=== PATIENT | female | born 1990 | race Caucasian/White ===

== ENCOUNTER 2017-12-17 16:53 | Emergency (ER) | payer OTHER ==
[~2017-12-17] VITALS: Ht 157.5 cm; Wt 52.2 kg
[~2017-12-17 16:53] MED LIST: AMPH20TA3 PO; BUPR75TA3 PO; METO25TA6 PO
--- NOTE | 2017-12-17 16:53 | NUR ---
C/O EPIGASTRIC PAIN, NAUSEA AND VOMITING X 4 DAYS. NAD NOTED. PT AAO X4, AMB WITH STEADY GAIT. RR EVEN AND UNLABORED. PENDING MD HOFF.
[2017-12-17] MEDS ORDERED: ONDANSETRON 4 MG TAB.RAPDIS ONE (17:18)
[2017-12-17 17:23] LABS: BASOPHILS % (AUTO) 0.1 % (0.0-2.0); EOSINOPHILS % (AUTO) 0.1 % (0.0-6.0); HEMATOCRIT 45 % (33-45); HEMOGLOBIN 15.6 g/dL (11.5-14.8); LYMPHOCYTES # (AUTO) 0.8 /CMM (0.8-4.8); LYMPHOCYTES % (AUTO) 4.8 % (20.0-44.0); MEAN CORPUSCULAR HEMOGLOBIN 32 PG (26.0-33.0); MEAN CORPUSCULAR HGB CONC 35 g/dl (31.0-36.0); MEAN CORPUSCULAR VOLUME 93 fL (82-100); MONOCYTES # (AUTO) 0.2 /CMM (0.1-1.30); MONOCYTES % (AUTO) 1.1 % (2.0-12.0); NEUTROPHILS # (AUTO) 16.2 /CMM (1.8-8.9); NEUTROPHILS % (AUTO) 93.9 % (43.0-81.0); PLATELET COUNT (AUTO) 320 /CMM (150-450); RDW COEFFICIENT OF VARIATION 11.5 (11.5-15.0); RED BLOOD CELL COUNT(AUTO) 4.83 MIL/uL (4.0-5.2); WHITE BLOOD COUNT (AUTO) 17.2 K/uL (4.3-11.0)
[2017-12-17] MEDS ORDERED: ONDANSETRON 4 MG TAB.RAPDIS SL ONE (17:30)
[2017-12-17 17:31] LABS: CALCIUM, SERUM 9.8 mg/dL (8.5-10.1); CARBON DIOXIDE 32 mmol/L (21-32); CHLORIDE 98 mmol/L (98-107); CREATININE 0.7 mg/dL (0.6-1.3); GLUCOSE 98 mg/dL (74-106); POTASSIUM 3.9 mmol/L (3.5-5.1); SODIUM SERUM 135 mmol/L (136-145); UREA NITROGEN, BLOOD 6 mg/dL (7-18)
[2017-12-17 17:35] LABS: INR 0.99 (0.85-1.15)
[2017-12-17 17:39] LABS: TROPONIN I < 0.017 ng/mL (0.00-0.056)
[2017-12-17] MEDS ORDERED: KETOROLAC TROMETHAMINE INJ 60 MG/2 ML VIAL IM ONE (18:00)
[2017-12-17] MEDS ORDERED: KETOROLAC TROMETHAMINE INJ 30 MG/ML VIAL ONE (18:13)
[2017-12-17 19:18] LABS: APPEARANCE,URINE CLOUDY (CLEAR); BILIRUBIN,URINE NEGATIVE (NEGATIVE); BLOOD, URINE TRACE Ery/uL (NEGATIVE); COLOR,URINE YELLOW (YELLOW); KETONES,URINE NEGATIVE (NEGATIVE); LEUKOCYTE ESTERASE ,URINE NEGATIVE (NEGATIVE); NITRITE, URINE NEGATIVE (NEGATIVE); PROTEIN,URINE NEGATIVE (NEGATIVE); UGLUCOSE NEGATIVE (NEGATIVE); UROBILINOGEN,URINE 0.2 EU/dL (0.2)
[2017-12-17 19:28] LABS: BACTERIA,URINE None seen /HPF (None Seen); RBC,URINE NONE SEEN /HPF (0-2); SQUAMOUS EPITHELIAL CELL,UR Moderate /HPF (None Seen); URINE AMORPHOUS URATE Many /HPF (None Seen); WBC,URINE 0-2 /HPF (0-3)
--- NOTE | 2017-12-17 19:34 | NUR ---
ONGOING ULTRASOUND AT BEDSIDE.
[2017-12-17] MEDS ORDERED: METRONIDAZOLE 500MG/ NS 100ML 100 ML IV ONE ×2 (20:00→20:08)
[2017-12-17] MEDS ORDERED: LEVOFLOXACIN 750 MG /D5W 150ML 150 ML IV ONE ×2 (20:00→21:23)
--- NOTE | 2017-12-17 20:05 | NUR ---
STARTED A SALINE LOCK ON THE LAC G20, BLOOD DRAWN AND SENT TO LAB.
[2017-12-17] MEDS ORDERED: IV D5/0.45 NACL 1,000 ML IV PRN (20:48)
--- NOTE | 2017-12-17 20:59 | NUR ---
REPORT GIVEN TO TIO WEINER FOR ADMISSION AND AIDE.
[2017-12-17] MEDS ORDERED: MAGNESIUM HYDROXIDE 30 ML UDC PO PRN (21:00)
[2017-12-17] MEDS ORDERED: Z GUARD REMEDY 2 OZ OINT TP PRN (21:00)
[2017-12-17] MEDS ORDERED: ZOLPIDEM TARTRATE 5 MG TABLET PO PRN (21:00)
[2017-12-17] MEDS ORDERED: MAG HYDROX/AL HYDROX/SIMETH 30 ML UDC PO PRN (21:00)
[2017-12-17] MEDS ORDERED: METRONIDAZOLE 500MG/ NS 100ML 500 MG in PREMIX 1 EA IV SCH (21:00)
[2017-12-17] MEDS ORDERED: HYDROCODONE/APAP 5/325MG 1 EACH TABLET PO PRN (21:00)
[2017-12-17] MEDS ORDERED: LEVOFLOXACIN 500 MG /D5W 100ML 500 MG in PREMIX 1 EA IV SCH (21:00)
[2017-12-17] MEDS ORDERED: ONDANSETRON HCL/PF 4 MG/2 ML VIAL IVP PRN (21:00)
[2017-12-17] MEDS ORDERED: ACETAMINOPHEN 325 MG TABLET PO PRN (21:00)
[2017-12-17] MEDS ORDERED: ARIP5TAB10 PO (21:07)
--- NOTE | 2017-12-17 21:13 | NUR ---
CALLED [facility] SPOKE WITH JACKELINE. , REGARDING TRANSFER REQUEST. EXPECTING A CALL BACK FROM A [employer].
[2017-12-17] MEDS ORDERED: HYDROMORPHONE 1 MG/1 ML DISP.SYRIN ONE (21:23)
[2017-12-17 21:25] LABS: ALBUMIN 4.3 g/dL (3.4-5.0); BILIRUBIN,DIRECT 0.1 mg/dL (0.0-0.2); BILIRUBIN,TOTAL 0.4 mg/dL (0.2-1.0); TOTAL PROTEIN, SERUM 8.2 g/dL (6.4-8.2)
[2017-12-17] MEDS ORDERED: ONDANSETRON HCL/PF 4 MG/2 ML VIAL ONE (21:26)
[2017-12-17] MEDS ORDERED: HYDROMORPHONE INJ 2 MG/ML DISP.SYRIN IV ONE (21:30)
[2017-12-17] MEDS ORDERED: ONDANSETRON HCL/PF 4 MG/2 ML VIAL IVP ONE (21:30)
--- NOTE | 2017-12-17 21:34 | NUR ---
CALLED [facility], NOTIFIED THEM OF HIGHER LEVEL OF CARE FOR [facility]CP.
--- NOTE | 2017-12-17 21:55 | NUR ---
GABRIEL FROM [facility] [place] CALLED. HE SAID HE IS WORKING ON GETTING US A MS BED. ACCEPTING DR. BAUER
--- NOTE | 2017-12-17 22:16 | NUR ---
GABRIEL FROM [facility] CALLED WITH TRANSFER INFO ACCEPTED BY DR BAUER ROOM [address] [facility] SUP AUTH # [id number]
--- NOTE | 2017-12-17 22:20 | NUR ---
CALLED [facility] FOR TRANSPORT ETA OF 0000 WAS GIVEN. TRIP#[id number]
[2017-12-17] MEDS ORDERED: IV NS 0.9% 1,000 ML BAG IV ONE (22:30)
--- NOTE | 2017-12-17 23:12 | NUR ---
REPORT GIVEN TO DERREK WEINER AT [facility] FOR TRANSFER AND AIDE.
[2017-12-17 23:13] VITALS: BP 98/68
--- NOTE | 2017-12-17 23:57 | NUR ---
ENDORSED CARE TO [facility] FOR TRANSPORT. VSS. NAD NOTED. PATIENT REMAINS ALERT AND ORIENTED, RESPONSIVE. NO FURTHER COMPLAINTS. FAMILY WITH PATIENT.
== END 2017-12-17 23:59 | disposition short-term general hospital (02) ==
LOC: ER 16:54 → UNDOADMIN 20:47 → MEDSG2 20:47
DX: K85.10 Biliary acute pancreatitis without necrosis or infection (principal); R11.2 Nausea with vomiting, unspecified; R53.1 Weakness; R10.9 Unspecified abdominal pain; I34.1 Nonrheumatic mitral (valve) prolapse; I10 Essential (primary) hypertension; F17.200 Nicotine dependence, unspecified, uncomplicated; Z88.0 Allergy status to penicillin
CPT/HCPCS: 36415; 71045; 76705; 80048; 80076; 81001; 83605; 83690; 84484; 84703; 85025; 85730; 87040 ×2; 93005 ×2; 96361; 96365; 96372; 96375; 96376; 99285; A4216 ×2; A4606; J1170; J1885; J1956 ×2; J2405; J3490 ×3; J7030; Z7610; 81000-TC